=== PATIENT | male | born 1985 | race African-American/Black ===

== ENCOUNTER 2016-06-23 16:20 | Emergency (ER) | payer SELFPAY ==
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
== END 2016-06-23 18:43 | disposition home or self-care (01) ==
LOC: CED 16:20
DX: S09.90XA Unspecified injury of head, initial encounter (principal); S00.83XA Contusion of other part of head, initial encounter; R55 Syncope and collapse; F17.200 Nicotine dependence, unspecified, uncomplicated; Z23 Encounter for immunization; V89.2XXA Person injured in unspecified motor-vehicle accident, traffic, initial encounter; Y92.410 Unspecified street and highway as the place of occurrence of the external cause
CPT/HCPCS: 70450; 70486; 72125; 90471; 90715; 99284

== ENCOUNTER 2016-08-12 22:48 | Emergency (ER) | payer SELFPAY | END 2016-08-12 23:00 | disposition home or self-care (01) | LOC: CED 22:48 | DX: Z76.0 Encounter for issue of repeat prescription (principal); I10 Essential (primary) hypertension; F17.210 Nicotine dependence, cigarettes, uncomplicated | CPT/HCPCS: 99282 ==

== ENCOUNTER → 2016-09-17 | Emergency (ER) | payer SELFPAY | END | disposition home or self-care (01) | LOC: CED 16:45 → CFTX 16:45 → CED 18:40 | DX: Z76.0 Encounter for issue of repeat prescription (principal) | CPT/HCPCS: 99282 ==

== ENCOUNTER 2016-10-20 13:28 | Emergency (ER) | payer SELFPAY ==
--- NOTE | ~2016-10-20 | EKG ---
PATIENT: DYANA GALAN UNIT #: [id number] Ventricular Rate: 86 BPM Atrial Rate: 86 BPM P-R Interval: 170 ms QRS Duration: 92 ms Q-T Interval: 354 ms QTC Calculation(Bezet): 423 ms P [place]: 44 degrees Calculated R [place]: 20 degrees Calculated T [place]: 26 degrees Diagnosis Line: Normal sinus rhythm Diagnosis Line: Normal ECG Diagnosis Line: When compared with ECG of 26-APR-2016 22:59, Diagnosis Line: No significant change was found Diagnosis Line: Confirmed by ANGELINE CHU MD ([id number]) on Diagnosis Line: 10/21/2016 11:07:30 AM INTERPRETING MD: KIMBERLEY TERRY
== END 2016-10-20 18:43 | disposition left against medical advice (07) ==
LOC: CED 13:28
DX: Z53.21 Procedure and treatment not carried out due to patient leaving prior to being seen by health care provider (principal)
CPT/HCPCS: 93005

== ENCOUNTER 2016-10-21 01:29 | Emergency (ER) | payer SELFPAY | END 2016-10-21 01:52 | disposition home or self-care (01) | LOC: CED 01:29 | DX: Z76.0 Encounter for issue of repeat prescription (principal); I10 Essential (primary) hypertension | CPT/HCPCS: 99281 ==

== ENCOUNTER 2016-11-27 07:22 | Emergency (ER) | payer SELFPAY ==
[~2016-11-27] VITALS: Ht 175.3 cm; Wt 108.9 kg
== END 2016-11-27 07:49 | disposition home or self-care (01) ==
LOC: CFTX 07:22 → CED 07:22 → CFTX 07:48
DX: Z76.0 Encounter for issue of repeat prescription (principal); I10 Essential (primary) hypertension
CPT/HCPCS: 99281

== ENCOUNTER 2017-01-06 07:21 | Emergency (ER) | payer OTHER ==
[~2017-01-06] VITALS: Ht 175.3 cm; Wt 111.1 kg
--- NOTE | ~2017-01-06 | EKG ---
PATIENT: DYANA GALAN UNIT #: [id number] Ventricular Rate: 79 BPM Atrial Rate: 79 BPM P-R Interval: 178 ms QRS Duration: 92 ms Q-T Interval: 366 ms QTC Calculation(Bezet): 419 ms P [place]: 27 degrees Calculated R [place]: -2 degrees Calculated T [place]: 7 degrees Diagnosis Line: Normal sinus rhythm Diagnosis Line: Normal ECG Diagnosis Line: When compared with ECG of 20-OCT-2016 17:18, Diagnosis Line: No significant change was found Diagnosis Line: Confirmed by NASREEN CARDONA MD ([id number]) on Diagnosis Line: 01/07/2017 12:32:46 PM INTERPRETING MD: DULCE TERRY
[2017-01-06 09:23] LABS: BASOPHIL% 0.7 % (0-2.5); EOSINOPHIL# 0.1 X10e3 (0-0.7); HEMATOCRIT 44.5 % (38.0-50.0); HEMOGLOBIN 15.7 gm/dL (13.0-16.0); LYMPHOCYTE% 35.4 % (17.0-45.0); MEAN CORPUSCULAR HEMOGLOBIN 33.1 PG (28-34); MEAN CORPUSCULAR HGB CONC 35.2 g/dL (30-36); MEAN PLATELET VOLUME 9.6 FL (6.5-11.5); MONOCYTE# 0.6 X10e3 (0-1.0); MONOCYTE% 11.3 % (3.0-12.0); NEUTROPHIL# 2.8 X10e3 (1.5-7.1); NEUTROPHIL% 50.6 % (40-75); PLATELET COUNT 178 X10e3 (140-420); RED BLOOD COUNT 4.73 X10e (3.90-5.60); RED CELL DISTRIBUTION WIDTH 12.9 % (11.0-15.5); WHITE BLOOD COUNT 5.6 X10e3 (4.0-10.5)
[2017-01-06 09:35] LABS: DIFF IND NO
[2017-01-06 10:14] LABS: ALBUMIN SERUM 4.5 g/dL (3.5-5.0); BILIRUBIN, DIRECT 0.1 mg/dL (0.0-0.2); BILIRUBIN,INDIRECT 0.4 mg/dL (0.0-0.9); BILIRUBIN,TOTAL 0.5 mg/dL (0.2-2.0); BUN/CREATININE RATIO 12.5; CALCIUM SERUM 9.2 mg/dL (8.4-10.2); CREATININE SERUM 0.8 mg/dL (0.6-1.4); PROTEIN TOTAL SERUM 7.7 g/dL (6.0-8.3)
[2017-01-06 10:18] LABS: AMPHETAMINE NEG (NEG); BARBITURATES NEG (NEG); BENZODIAZEPINES NEG (NEG); COCAINE NEG (NEG); MARIJUANA NEG (NEG); OPIATES NEG (NEG); TRICYCLIC ANTIDEPRESSANTS NEG (NEG); U METHADONE NEG (NEG)
== END 2017-01-06 11:51 | disposition home or self-care (01) ==
LOC: CED 07:21
PROVIDERS: Nurse Practitioner
DX: R42 Dizziness and giddiness (principal); Z87.891 Personal history of nicotine dependence
CPT/HCPCS: 36415; 80048; 80076; 80307; 82947; 85025; 93005; 99284